=== PATIENT | female | born 1970 | race Caucasian/White ===

== ENCOUNTER 2020-07-14 06:52 | Day surgery (SDC) | payer OTHER ==
[~2020-07-14] VITALS: Ht 162.6 cm; Wt 74.4 kg
[2020-07-14 08:52] VITALS: BP 116/70
[2020-07-14 13:15] VITALS: BP 123/68
== END 2020-07-14 13:30 ==
LOC: DS 06:52
PROVIDERS: ATTEND Internal Medicine Gastroenterology
DX: K62.5 Hemorrhage of anus and rectum (principal); K57.30 Diverticulosis of large intestine without perforation or abscess without bleeding; Z98.891 History of uterine scar from previous surgery; Z80.0 Family history of malignant neoplasm of digestive organs
CPT/HCPCS: 45378; J1200; J1610; J2250; J2310; J3010; J3490